=== PATIENT | female | born 1980 | race African-American/Black ===

== ENCOUNTER 2016-08-14 01:46 | Inpatient (IN) | payer OTHER ==
[~2016-08-14] VITALS: Ht 167.6 cm; Wt 80.7 kg
[~2016-08-14 01:46] MED LIST: ACET325T51 PO; METO-301 PO; PNV91TAB3 PO
[2016-08-14] MEDS ORDERED: Penicillin G K Inj 5,000,000 UNITS in Dextrose 5% Minibag Plus 100 ML IV ONE (09:05)
--- NOTE | 2016-08-14 09:24 | PCM.HPOB ---
Subjective Referring Provider: Admitting Physician: Raúl Carnes MD Primary Care Physician: Nael Orr MD Attending Physician: Raúl Carnes MD Chief Complaint Induction of Labor History of Present History of Present Illness The patient is a 35-year-old, 4, para 3, at 41 weeks today, who is coming to Labor and Delivery for elective induction of labor. The patient has a history of three spontaneous vaginal deliveries in the past, all of them at term. She has a history of elective induction of labor at 39 weeks, which was unsuccessful. She is considering tubal ligation. OB History: (4), Para (3) Past Medical History Obstetrical History: all . Gynecologic History: Female circumcision age 7 Medical History: None stated Surgical History: Non Stated Hx Tobacco Use: No Hx Alcohol Use: No Hx Substance Use: No Past Family History Living Arrangement: with Family Genetic Screening/Counseling Genetic Screening/Counseling: Positive Review of Systems Constitutional: Y: Pain, Dizziness, Fever Eyes: Denies: Vision Changes Cardiovascular: Denies: Chest Pain Respiratory: Denies: Cough Gastrointestinal: Reports: Abdominal Pain, Denies: Nausea, Vomiting Neurological: Denies: Confusion, Dizziness, Weakness Hematologic: Denies: Abnormal bleeding Allergy Coded Allergies: No Known Allergies (Unverified , 08/18/16) Exam Vital Signs BP 112/78 HR 82 RR 18 O2 98% Temp 36.9 Exam HR 135, moderate variability 6-25bpm. Accelerations - 15x15, decelerations - variable Constitutional: Well-developed, Well-nourished HEENT: Atraumatic, PERRLA, EOMI Lungs: Clear to Auscultation, Normal Air Movement Heart: Exam Unremarkable, Regular Rate/Rhythm, Normal S1, Normal S2 Abdomen: Gravid Neurological/Psychiatric: Alert, Oriented X3, Cooperative Neuro: Grossly Neurologically Intact Labs/Diagnostics Maternal Blood Type: A Group B Strep Results: Positive Rubella: Immune Lab History: Negative for: Hx Chicken Pox, Hx Gonorrhea, Hx HIV, Hx Herpes, Hx Syphilis OB Intrapartum Assessment/Plan Assessment 35 year old female, second attempt at induction. Post induction baby has had some early decelerations with two episodes of deep decelerations. Overall good variability. Pt given Diflucan for a yeast infection present on admission, PCN bolus given followed by drip. Pain Evaluation: Adequate Pain Control Attending Statement Coming in for induction for post date. Will consider cervical ripening at this moment VONNIE SANCHEZ DO Aug 14, 2016 09:24 Olivia Hopkins MD Sep 08, 2016 13:04
[2016-08-14] MEDS ORDERED: Oxytocin 30 Units/500 mL LR 30 UNITS in IV Premix 1 EACH IV PRN (09:30)
[2016-08-14] MEDS ORDERED: Hemorrhage Kit, Post Partum XX ONE (09:30)
[2016-08-14] MEDS ORDERED: Methylergonovine 0.2 mg/mL Inj IM PRN (09:30)
[2016-08-14] MEDS ORDERED: Sodium Chloride LOK Flush 10 mL Syringe IVFLUSH PRN (09:30)
[2016-08-14] MEDS ORDERED: Oxytocin 10 Unit/mL Inj IM PRN (09:30)
[2016-08-14] MEDS ORDERED: Carboprost 250 mCg/mL Inj IM PRN (09:30)
[2016-08-14] MEDS: Lactated Ringer's 1,000 ML IV SCH ×2 (09:36→18:00)
[2016-08-14] MEDS: Misoprostol 25 mCg/0.25 Tablet VAGINAL SCH ×3 (09:36→17:00)
[2016-08-14 09:42] LABS: Mean Corpuscular Hemoglobin 25.6 pg (27.0-35.0); Mean Corpuscular Volume 75.8 fL (81-100)
[2016-08-14] MEDS ORDERED: Bupivacaine-MPF 0.25% 30 mL Inj ONE (12:59)
[2016-08-14] MEDS: Penicillin G K Inj 3,000,000 UNITS in IV Premix 1 EACH IV SCH ×3 (14:04→21:55)
[2016-08-14] MEDS ORDERED: Lactated Ringer's 500 ML IV ONE (20:01)
[2016-08-14] MEDS ORDERED: Lactated Ringer's 1,000 ML IV SCH (20:01)
[2016-08-14] MEDS ORDERED: Atropine 1 mg/10 mL (Code) Syringe IVPUSH PRN (20:05)
[2016-08-14] MEDS ORDERED: EPHEDrine Sulfate 50 mg/mL Inj IVPUSH PRN (20:05)
[2016-08-14] MEDS ORDERED: fentaNYL 2 mCg/mL-Bupiv 0.125% 100 ML EPIDURAL SCH (20:05)
[2016-08-14] MEDS ORDERED: Ondansetron 2 mg/mL 2 mL Inj IVPUSH PRN (20:05)
--- NOTE | 2016-08-14 23:28 | PCM.HPANE ---
Patient Data Surgeon Admitting Provider:Raúl Carnes MD Attending Provider:Raúl Carnes MD Primary Care Physician:Nael Orr MD Other Provider:Hemant Hernandez Anesthesia Reason for Visit Induction INDUCTION Ht/WT & BMI Body Mass Index Allergies Coded Allergies: No Known Allergies (Unverified , 01/16/16) Diabetes History Hx Diabetes?: No MRSA MRSA: No Medications Hypertension Medication: No Home Meds Incl Beta Flory: No Active Scripts Metoclopramide (Reglan)10 Mg [id number] Mg PO QID PRN For Headache #10 TABLET Ref 0 Prov:Jeremy Pathak DO 01/16/16 Reported Medications Acetaminophen 325 Mg [id number] Mg PO Q4H PRN For Fever Ref 0 01/16/16 Pnv95/Ferrous Fumarate/FA ( Caplet)28 Mg Iron-800 Mcg Tablet1 Each PO 01/16/16 History History of ENT Problems?: No Hx of Heart Problems?: No Cardiovascular History: Denies:: Congestive Heart Failure Hypertension Hx of Respiratory Problem?: No Respiratory History: Denies:: Tuberculosis Hx Neurologic Problems?: No Hx of GI Problems?: No Hx of Problems?: No HX of Peritoneal Dialysis: No Female Hx: Positive for:: Currently Hx Musculoskeletal Problems?: No Hx of Psycho/Social Problems?: No Hx Surgeries?: No Hx Diabetes: No Hx Alcohol Use: NoHx Substance Use: No Smoking Status: Never Smoker Stop/Bang NICHOLAS Risk Assessment: Low Risk, <3 Yes Risk Assessment Category Category 1A: Patient has history of documented sleep apnea, and HAS NOT received any narcotic, sedative or anesthesia administration during this stay. Category 1B: Patient has history of documented sleep apnea, and HAS received any narcotic , sedative or anesthesia administration during this stay Category 2: Patient has SUSPECTED Obstructive Sleep Apnea, and HAS received any narcotic , sedative or anesthesia administration during this stay. Category 3: Patient has SUSPECTED Obstructive Sleep Apnea and HAS NOT received narcotic, sedative or anesthesia administration during this stay. Category 4: Outpatient in Procedural Areas with known sleep apnea or who screen positive for High Risk via the STOP/BANG questionnaire. Exam Exam General Appearance: Alert, Oriented X3, Cooperative, No Acute Distress HEENT/AIRWAY: MP 2 Lungs: Clear to Auscultation, Normal Air Movement Heart: Exam Unremarkable, Regular Rate/Rhythm, No Murmurs/Rubs/Gallops Meds/Labs/Diagnostics Admission Meds Current Medications Lactated Ringer's (Lr) 1,000 ml @ 125 mls/hr Q8H IV Last administered on 18:00; Start 08/14/16 at 08:57 Misoprostol (Cytotec) 25 mcg Q4H VAGINAL Last administered on 08/14/16 09:36; Start 08/14/16 at 09:00 Fluconazole (Diflucan) 150 mg DAILY PO Last administered on 08/14/16 09:36; Start 08/14/16 at 09:05 Acetaminophen 650 mg 650 mg ONCE ONCE PO Last administered on 08/14/16 09:36 ; Start 08/14/16 at 09:05; Stop 08/14/16 at 09:08; Status DC Penicillin G Potassium [id number] units/Dextrose/ Water 100 ml @ 240 mls/hr ONCE ONCE IV Last administered on 08/14/16 09:35; Start 08/14/16 at 09:05; Stop 06/20 at 09:29; Status DC Penicillin G Potassium/ Dextrose/Premix (Pfizerpen Inj/ IV Premix) 50 ml @ 100 mls/hr Q4H IV Last administered on 08/14/16 17:59; Start 08/14/16 at 13:49 Labs Test 08/14/16 08:45 White Blood Count 7.0th/mm3 (3.8-10.1) Red Blood Count 4.29mil/mm3 (3.90-5.20) Hemoglobin 11.0g/dL (12.0-15.6) Hematocrit 32.5% (35.0-46.0) Mean Corpuscular Volume 75.8fL (81-100) Mean Corpuscular Hemoglobin 25.6pg (27.0-35.0) Mean Corpuscular Hemoglobin Concent 33.8% (32.0-37.0) Red Cell Distribution Width 13.7% (12.3-15.4) Platelet Count 245bil/L (150-400) Plan Impression Patient chart reviewed, patient interviewed and anesthestic plan with risks, benefits, and alternatives discussed, and informed consent obtained. ASA Physical Status: ASA2 Mod Systemic Disease Anesthetic Plan: Epidural Bene/Risks/Altern/Consents: Yes HP Complete Prior to Induction: Yes Dick Castro MD Aug 14, 2016 20:04
[2016-08-15] MEDS: Penicillin G K Inj 3,000,000 UNITS in IV Premix 1 EACH IV SCH (02:30)
[2016-08-15] MEDS ORDERED: Lactated Ringer's 1,000 ML IV SCH (04:23)
[2016-08-15] MEDS ORDERED: Witch Hazel-Glycerin Pads TOPICAL PRN (04:25)
[2016-08-15] MEDS ORDERED: Methylergonovine 0.2 mg/mL Inj IM PRN (04:25)
[2016-08-15] MEDS ORDERED: Hemorrhage Kit, Post Partum XX ONE (04:25)
[2016-08-15] MEDS ORDERED: LANOlin HPA 7 Gm Ointment TOPICAL PRN (04:25)
[2016-08-15] MEDS ORDERED: Carboprost 250 mCg/mL Inj IM PRN (04:25)
[2016-08-15] MEDS ORDERED: Oxytocin 30 Units/500 mL LR 30 UNITS in IV Premix 1 EACH IV PRN (04:25)
[2016-08-15] MEDS ORDERED: Oxytocin 10 Unit/mL Inj IM PRN (04:25)
--- NOTE | 2016-08-15 06:57 | OP ---
[address] [address] OPERATIVE REPORT PATIENT: AWAIS LOUIE : 1980 MR#: [id number] ADMIT: 08/14/2016 JOB ID: [id number] DATE OF SURGERY: 08/15/2016 SURGEON: Olivia Hopkins MD PREOPERATIVE DIAGNOSIS(ES): POSTOPERATIVE DIAGNOSIS(ES): DELIVERY NOTE: This is a 35-year-old female, 4, para 4 now. She is at 41 weeks gestation. She was admitted for induction of labor for post dates with unfavorable cervix. She was started with cervical ripening and with Cytotec and Casper balloon. After the Casper balloon was removed 6 hours after placement, she was noted to be 4 cm dilated and Pitocin was started, and she got Pitocin for controlling of labor pain. Then she had labor progressed after that well. Plan was to start her on Pitocin induction. She progressed actually spontaneously to full dilation. She had a good effort to push after she was fully dilated. When I presented to the room she had been pushing for 1 hour and 20 minutes with station at +1. The position was NAIDA. During her pushing, felt like her effort was decreasing and her contraction at this time was irregular. Decision was made to start her on Pitocin augmentation. With very low dose of Pitocin, her contractions became stronger and she has a better effort to push. During the push there were variable decelerations after each contraction. It goes down to as deep as 70 bpm, but it lasts about 20-30 seconds and recovers quickly. The patient was placed with position change and oxygen. The patient delivered the at NAIDA position and the shoulder and chest delivered without difficulty. The infant cried spontaneously after delivery immediately. The was placed on mother's chest. Cord clamped and cut after the pulsation disappeared. Cord blood collected and then the placenta delivered spontaneously completely and examined with three-vessel cord. After the placenta delivered, the uterus was well contracted. The perineum examined and noticed there was a small periurethral laceration with no active bleeding. There was no other laceration on the perineum. Two simple stitches were placed to close the small tear at her left perirectal area. Hemostasis confirmed. The patient has low tolerance and but she is tolerating the delivery well with instruction. All the instruments, needles, laps and gauzes counted correct twice. The EBL during the delivery was about 150 cc. The score of the was 9 and 9. The weight was not available at dictation. [facility]
--- NOTE | 2016-08-15 07:03 | PCM.PNOBPP ---
Subjective Date of Service Aug 15, 2016 Post : Spontaneous Vaginal Delivery Subjective 35 year old at 41 weeks induced labor (second attempt). Pt began induction process on 08/14/16 receiving cervical ripening with Cytotec and Casper balloon followed by pitocin. Pt delivered on 08/15/16 at ~ 0400 without complication. Pt suffered a small periurethral laceration with no active bleeding. 2 simple stitches placed. at time of interview Pt had not voided urine , but was able to ambulate to restroom. Pt had not yet had a BM or passed flatus. Complains of mild lower abdominal/vaginal pain. Denies CP, N/V, MERRITT. Lochia: Normal Pain Management: PO pain meds, Good Pain Control Gastrointestinal: Passing Flatus Postop Activity: Ambulating in Room Only Group B Strep Results: Positive Rubella: Immune Blood Type: A Labs Laboratory Tests 08/14/16 08:45: White Blood Count 7.0, Red Blood Count 4.29, Hemoglobin 11.0, Hematocrit 32.5, Mean Corpuscular Volume 75.8, Mean Corpuscular Hemoglobin 25.6, Mean Corpuscular Hemoglobin Concent 33.8, Red Cell Distribution Width 13.7, Platelet Count 245 Exam Vital Signs Vital Signs: VS reviewed, stable Exam Abdomen: Abdomen soft, Abdomen appropriately tender : Voiding concerns (Has not voided yet) Lungs: Clear to Auscultation Heart: Exam Unremarkable, Regular Rate/Rhythm General: Alert, Oriented X3, Cooperative OB Post Assessment/Plan Assessment 35 year old , at 0400 after induction yesterday morning without complication. Mother doing well. Problems: (1) Vaginal delivery Plan: Pain managment PRN, encourage ambulation, stool softener. Status: Acute ICD Code: O80 Pain Evaluation: Adequate Pain Control Attending Statement I saw patient and agree with above plan VONNIE SANCHEZ DO Aug 15, 2016 07:03 Olivia Hopkins MD Sep 08, 2016 12:59
[2016-08-15] MEDS: HYDROcodone-APAP 5-325 mg Tablet PO PRN ×4 (09:11→23:33)
[2016-08-16 06:41] LABS: Mean Corpuscular Hemoglobin 25.4 pg (27.0-35.0); Mean Corpuscular Volume 76.7 fL (81-100)
--- NOTE | 2016-08-16 07:18 | PCM.PNOBPP ---
Subjective Date of Service Aug 16, 2016 Post : Spontaneous Vaginal Delivery Subjective 35 year old s/p on 06/15/17 at 0400 after labor induction with no complications. Pt is Mother and baby doing well. Mother plans to breast feed, is walking around room, able to urinate and pass flatus - reports no BM. Lochia: Normal Pain Management: PO pain meds, Good Pain Control Gastrointestinal: Passing Flatus Postop Activity: Ambulating in Room Only Group B Strep Results: Positive Rubella: Immune Blood Type: A RH Type: Positive Labs Laboratory Tests 08/14/16 08:45: White Blood Count 7.0, Red Blood Count 4.29, Hemoglobin 11.0, Hematocrit 32.5, Mean Corpuscular Volume 75.8, Mean Corpuscular Hemoglobin 25.6, Mean Corpuscular Hemoglobin Concent 33.8, Red Cell Distribution Width 13.7, Platelet Count 245 Exam Exam Abdomen: Abdomen soft, Abdomen appropriately tender : Voiding without difficulty Extremities: Normal pulses Lungs: Normal Air Movement Heart: Regular Rate/Rhythm General: Alert, Oriented X3, Cooperative OB Post Assessment/Plan Problems: (1) Vaginal delivery Plan: Pain management PRN, encourage ambulation, stool softener. Discharge to home today. Status: Acute ICD Code: O80 Pain Evaluation: Adequate Pain Control Attending Statement The patient was seen and examined together with Dr. Velasco on 08/16/2016 and I agree with the history, exam and plan as outlined in the note above. / MD DANIEL Smith GILES A DO Aug 16, 2016 06:27 Raúl Carnes MD Sep 25, 2016 16:15
--- NOTE | 2016-08-16 07:33 | PCM.DC.OB ---
Obstetrical Discharge Summary Date of Service Aug 16, 2016 Date of hospital admission Aug 14, 2016 at 07:30 Date of Discharge: Aug 16, 2016 Providers Admitting Physician: Raúl Carnes MD Primary Care Physician: Nael Orr MD Attending Physician: Raúl Carnes MD Problems: (1) Vaginal delivery Plan: Discharge to home, Rx for Colace IBU and pelvic rest. Will have 6 week follow up at which time she will have an IUD placement at that time. She is planning on breast feeding. Status: Acute ICD Code: O80 Brief History and Physical: The patient is a 35-year-old, 4, para 3, at 41 weeks today, who is coming to Labor and Delivery for elective induction of labor. The patient has a history of three spontaneous vaginal deliveries in the past, all of them at term. She has attempted to induce labor during this at 39 weeks, which was unsuccessful. She is considering tubal ligation. Hospital Course: Labor induced on the morning of 06/14/17. Pt gave to a healthy boy on 07/20 at 0400 with no complications. Pt GBS positive and given appropriate ABX coverage. Pt also had a reported yeast infection, Diflucan started in hospital. Pt recovered well over 24 hour period with no adverse events. Discharged to home in stable condition. Acetaminophen (Acetaminophen) 325 Mg Tablet 325 MG PO Q4H PRN PRN For Fever ( Reported) Ascorbic Acid (Vitamin C) 250 Mg Tab.chew 125 MG PO DAILY Prescribed by: VONNIE VELASCO DO Docusate Sodium (Colace) 100 Mg Capsule 100 MG PO BID PRN PRN For Constipation Prescribed by: VONNIE VELASCO DO Ferrous Sulfate (Ferrous Sulfate) 325 Mg Tablet 325 MG PO DAILY Prescribed by: VONNIE VELASCO DO Fluconazole (Diflucan) 100 Mg Tab 150 MG PO DAILY Prescribed by: VONNIE VELASCO DO Ibuprofen (Ibuprofen) 600 Mg Tablet 600 MG PO Q6H PRN PRN For Mild Pain Prescribed by: VONNIE VELASCO DO Metoclopramide (Reglan) 10 Mg Tablet 10 MG PO QID PRN PRN For Headache Prescribed by: MECCA MOREIRA DO Pnv95/Ferrous Fumarate/FA ( Caplet) 28 Mg Iron-800 Mcg Tablet 1 EACH PO (Reported) Discharge Medications: Colace, Ibuprofen, Iron, Vit C Disposition Discharge to home Follow-up plan Follow up in the women's clinic in 6 weeks. Discharge Diet: No restrictions Discharge Activity-General: Pelvic Rest for 6 weeks, Pelvic Rest (6 weeks), Try not to overdue, Balance rest and activity, Activity as pain allows, Activity as energy allows Patient instructions Be sure to follow up in 6 weeks at women's [facility]. Please remember to call ahead to also schedule an IUD placement as you stated that will be your preferred method of contraception. Pelvic rest for 6 weeks (nothing in the vagina including intercourse, tampons) If you have a fever greater than 100.4 please call [facility]. If you have a lot of bleeding suddenly, especially if you have symptoms of dizziness & weakness with it, get emergency help. If you start experiencing extreme depression, especially if you feel that you are a danger to yourself or your family, seek emergency help. Please continue to take you iron and vitamin C supplement. You may take Tylenol and Ibuprofen for pain. Please alternate between these two medications and do not exceed the maximum doses in a 24 hour period. Do not take more than 3,000 mg in one day of acetaminophen (Tylenol) or 3200mg of ibuprofen in a 24 hour period. Please take your docusate, if you still do not have a bowel movement in the next few days please follow up in the women's clinic or with your PCP. I have given you a prescription for two more Diflucan pills, you may take these if you have a recurrence of your yeast infection. Please follow up in the women' s clinic for continued management. You have been through a lot -- Be sure to take care of yourself. Attending Statement: The patient was seen and examined together with Dr. Velasco on 08/16/2016 and I agree with the history, exam and plan as outlined in the note above. / MD DANIEL Smith GILES A DO Aug 16, 2016 07:32 Raúl Carnes MD Sep 25, 2016 16:16
--- NOTE | 2016-08-16 07:46 | PCM.DIOB ---
Obstetrical Disch Instruction Dates of Hospitalization Date of Hospital Admission Aug 14, 2016 at 07:30 Providers Admitting Physician: Raúl Carnes MD Primary Care Physician: Nael Orr MD Attending Physician: Raúl Carnes MD Discharge Diagnosis Problems: (1) Vaginal delivery Plan: Pelvic rest x 6 weeks, Ibuprofen for pain. Colace for constipation. Will continue to take Iron and Vit C secondary to anemia. Follow up in [facility] in 6 weeks. Status: Acute ICD Code: O80 Diet Discharge Diet: No restrictions Activity Discharge Activity-General: Pelvic Rest for 6 weeks, Try not to overdue, Balance rest and activity, Activity as pain allows, Activity as energy allows, No lifting >15 pounds for 2 weeks Dressing and Incisional Care Hygiene: May shower, NO bathtub, hot tub or whirlpool, Witch Arabella pads, Ice Additional Instructions Discharge Instructions Be sure to follow up in 6 weeks at [facility]. Please remember to call ahead to also schedule an IUD placement as you stated that will be your preferred method of contraception. Pelvic rest for 6 weeks (nothing in the vagina including intercourse, tampons) If you have a fever greater than 100.4 please call [facility]. If you have a lot of bleeding suddenly, especially if you have symptoms of dizziness & weakness with it, get emergency help. If you start experiencing extreme depression, especially if you feel that you are a danger to yourself or your family, seek emergency help. Please continue to take you iron and vitamin C supplement as prescribed You may take Tylenol and Ibuprofen for pain. Please alternate between these two medications and do not exceed the maximum doses in a 24 hour period. Do not take more than 3,000 mg in one day of acetaminophen (Tylenol) or 3200mg of ibuprofen in a 24 hour period. Please take your docusate, if you still do not have a bowel movement in the next few days please follow up in the women's clinic or with your PCP. I have given you a prescription for two more Diflucan pills, you may take these if you have a recurrence of your yeast infection. Please follow up in the women' s clinic for continued management. You have been through a lot -- Be sure to take care of yourself. Follow Up Plan Follow Up Plan Follow up in 6 weeks at [facility] Follow-up appointment: Weeks (6) Call your provider for: Fever or Chills, Shortness of breath, Heavy vaginal bleeding, Heavy bleeding, Epigastric pain, Excessive constipation, Vaginal discomfort, Red painful breasts VONNIE SANCHEZ DO Aug 16, 2016 07:46
[2016-08-16] MEDS ORDERED: DOCU-41 PO (07:53)
[2016-08-16] MEDS ORDERED: IBUP-1827 PO (07:53)
[2016-08-16] MEDS ORDERED: ASCO250T7 PO ×3 (07:56→08:19)
[2016-08-16] MEDS ORDERED: FERR-83 PO (08:06)
[2016-08-16 08:59] VITALS: BP 100/61; PULSE 66
[2016-08-16] MEDS ORDERED: DIF100A PO (09:47)
== END 2016-08-16 13:00 | disposition home or self-care (01) | DRG 775 ==
LOC: FBC 07:30
PROVIDERS: ADMIT Obstetrics & Gynecology; ATTEND Obstetrics & Gynecology
PROC: 10E0XZZ Delivery of Products of Conception, External Approach (ICD-10-PCS; principal; 2016-08-15)
PROC: 0TQD7ZZ Repair Urethra, Via Natural or Artificial Opening (ICD-10-PCS; 2016-08-15)
DX: O71.5 Other obstetric injury to pelvic organs (principal); O99.824 Streptococcus B carrier state complicating childbirth; B37.3 Candidiasis of vulva and vagina; Z3A.41 41 weeks gestation of pregnancy

== ENCOUNTER 2016-08-18 13:03 | Emergency (ER) | payer OTHER ==
[~2016-08-18] VITALS: Ht 167.6 cm; Wt 70.5 kg
[~2016-08-18 13:03] MED LIST changes: +ASCO250T7 PO; +DIF100A PO; +DOCU-41 PO; +FERR-83 PO; +IBUP-1827 PO
[2016-08-18 13:05] VITALS: BP 128/82; PULSE 78; RESP 18; O2SAT 99
--- NOTE | 2016-08-18 13:21 | ED.REPORT ---
HPI-Headache Date of Service Aug 18, 2016 ED Provider: Dr. Olsen Pt is a 35 y/o female presenting to the ED with her c/o severe headache with radiation to the posterior neck onset 2 days ago. She has a very distant history migraines but has never experienced a headache similar to this before. This is not similar to a migraine. Her headache began after being discharged from a labor and delivery admission at which point she received an epidural. Of note, there were complications during the administration of the epidural. She c/ o associated mild LLE numbness and tingling from the buttock to the foot, photophobia, phonophobia. She denies nausea, vomiting, fever, chills, focal weakness, speech change, vision change. This was her 4th delivery. She has used Tylenol and Ibuprofen along with hot/cold packs without relief. They called the charge nurse at the OB floor and was told to coem to the ED. OB: Dr. Tan Nursing Notes Stated Complaint: HEADACHE Chief Complaint: Headache Nursing Notes Reviewed: Yes Allergies: Coded Allergies: No Known Allergies (Unverified , 08/18/16) Scheduled Ascorbic Acid (Vitamin C) 250 Mg Tab.chew 125 MG PO DAILY Ferrous Sulfate (Ferrous Sulfate) 325 Mg Tablet 325 MG PO DAILY Fluconazole (Diflucan) 100 Mg Tab 150 MG PO DAILY Scheduled PRN Acetaminophen (Acetaminophen) 325 Mg Tablet 325 MG PO Q4H PRN PRN For Fever Docusate Sodium (Colace) 100 Mg Capsule 100 MG PO BID PRN PRN For Constipation Ibuprofen (Ibuprofen) 600 Mg Tablet 600 MG PO Q6H PRN PRN For Mild Pain Metoclopramide (Reglan) 10 Mg Tablet 10 MG PO QID PRN PRN For Headache Miscellaneous Medications Pnv95/Ferrous Fumarate/FA ( Caplet) 28 Mg Iron-800 Mcg Tablet 1 EACH PO General Time Seen by MD: 13:21 Chief Complaint Headache, Worst headache of life Hx Obtained From: Patient, Spouse Arrived By: Walk-in Sudden in Onset?: No Onset Occurred: 2 days ago Symptom Duration: Since onset Location: : Generalized Quality: Painful Radiation: : Neck, posterior Severity: Current: Moderate Severity: Maximum: Severe Exacerbated by: Light, Sound Recent Healthcare: Recent hospitalization Similar Sx Previous: No Past Medical History Past Medical History Migraines Past Surgical History Denies Family History noncontributory Smoking History Never Smoker Social History Alcohol Use: Denies alcohol use Drug Use: Denies drug use Other Social History: Good social support, Lives with children, Local resident Ambulatory Status Independent Review of Systems Review of Systems Note: + phonophobia Constitutional: Denies: Chills, Fever Eyes: Reports: Photophobia GI: Denies: Abdominal pain, Diarrhea, Nausea, Vomiting Neurologic: Reports: Headache, Numbness, Denies: Abnormal movement, Bladder dysfunction, Bowel dysfunction, Change LOC , Confusion, Dizziness, Focal weakness, Lightheaded, Problem walking, Seizure, Shaking, Slurred speech, Spinning sensation, Syncope, Unable to speak, Vision change Complete sys rev & neg: except as marked. Cardiovascular: Denies: Chest pain Physical Exam Initial Vital Signs Initial VS: Reviewed, Vital signs normal ENT: Mucous membranes moist, Conjunctiva normal, No scleral icterus Respiratory: Breath sounds normal, Clear to auscultation, No respiratory distress Cardiovascular: Regular rate & rhythm, Heart sounds normal, Intact distal pulses Abdomen / GI: Soft, Non-tender, No guarding, No rebound, No distention Extremities: Vascular intact, Neuro intact, No swelling, No tenderness Skin: Warm, Dry, No cyanosis Psychiatric: Mood/affect normal, Behavior normal, Normal thought content General/Constitutional: Awake, Alert, No acute distress, Cooperative, Not toxic appearing Appearance / Presentation: Positive: Uncomfortable Head / Eyes: Atraumatic, Normocephalic, PERRL, EOMI, No nystagmus Photophobia Phonophobia Neck: Atraumatic, Supple, No meningismus, Full range of motion Neurologic: Oriented X3, Speech NL, No motor deficits, No sensory deficits, CN II - XII intact, Cerebellar NL, Memory NL Interpretation & Diagnostics Lab Results Interpretation Test 08/18/16 13:00 08/18/16 14:04 White Blood Count 7.8th/mm3 (3.8-10.1) Red Blood Count 4.69mil/mm3 (3.90-5.20) Hemoglobin 11.8g/dL (12.0-15.6) Hematocrit 35.8% (35.0-46.0) Mean Corpuscular Volume 76.3fL (81-100) Mean Corpuscular Hemoglobin 25.2pg (27.0-35.0) Mean Corpuscular Hemoglobin Concent 33.0% (32.0-37.0) Red Cell Distribution Width 14.1% (12.3-15.4) Platelet Count 302bil/L (150-400) Neutrophils (%) (Auto) 78.8% (40-74) Lymphocytes (%) (Auto) 12.8% (14-46) Monocytes (%) (Auto) 5.5% (4-12) Eosinophils (%) (Auto) 1.7% (0-5) Basophils (%) (Auto) 0.3% (0-3) Sodium Level 139mEq/L (134-144) Potassium Level 3.6mEq/L (3.5-5.2) Chloride Level 102mEq/L (97-108) Carbon Dioxide Level 24mmol/L (18-29) Blood Urea Nitrogen 11mg/dL (6-20) Creatinine 0.81mg/dL (0.57-1.00) Estimat Glomerular Filtration Rate 103mL/min (>59) Glucose Level 85mg/dL (60-99) Calcium Level 8.7mg/dL (8.5-10.1) C-Reactive Protein 3.8mg/dL (0.0-0.5) Hold Velasquez Top Tube Received (Received) Pulse Oximetry Interpretation Pulse Oximetry: Pulse Ox normal, On room air CBC Interpretation CBC normal BMP / CMP Interpretation BMP/CMP normal Acute Phase Reactant Interp CRP elevated CT Head Interpretation IMPRESSION: Source of severe headache is not found. Dictated by: Efrain Bennett M.D. on 08/18/2016 at 14:21 Approved by: Efrain Bennett M.D. on 08/18/2016 at 14:21 Study: Head CT no contrast Interpretation / Wet Read by: Interpret - Radiologist Re-Eval/Medical Decision Med Decision/Clinical Course 45-year-old female presenting with severe headache that started 2 days ago after receiving epidural for childbirth. CT brain is negative. She has no focal neurologic deficits. Discussed case with anesthesia who agreed this is a spinal headache and to treat with blood patch. After this procedure was performed patient felt much better. Please see anesthesia note for documentation of this procedure. She will return if her symptoms return/worsen. Source of Hx: Old records, Family Re-Evaluation/Progress #1: Time of Eval: 15:02 Re-Evaluation/Progress Note: Pt rechecked. She is feeling better after the blood patch. She is meant tos audrey on her back for 1 hr and anesthesia will come recheck her. Re-Evaluation/Progress #2: Time of Eval: 15:54 )( Patient Status: Condition resolved, Complete relief, Pain resolved Evaluation: Mental status normal, Neurologic nonfocal Re-Evaluation/Progress Note: Pt rechecked. Informed pt of plan for treatment. Pt understands and agrees with plan for treatment. F/U and RTER warnings given. All questions addressed. Consultation : Referral / Consult Name: Meng Guerrero MD Consulted With: Anesthesia Call Returned at: 14:00 Electric Motorman: Agrees with eval, Agrees with plan Note: Discussed case with OB anesthesia. He will come down and evaluate the patient. Counseled Regarding: Diagnosis, Lab results, Need for follow-up, When/why to return to ED Discharge & Departure Impression: Primary Impression: Spinal headache Disposition: Home Discharge Condition All VS Reviewed: Yes Condition: Stable Patient Instructions: Acute Headache (ED) Additional Instructions: Your emergency room evaluation today was suggestive that you have a spinal headache after your epidural, which is a rare complication of this procedure. You were treated by the anesthesiologist with a blood patch for this and your headache improved. You should continue to take Tylenol and caffeine as needed for your headache. If the headache returns or worsens please return for further evaluation. I hope you continue to feel better. Please follow-up with your regular provider next week. Referrals: Nael Orr MD (PCP) Raúl Carnes MD Attestation Portions of this note were transcribed by Khurram Padilla. I, Dr. Madsen personally performed the history, physical exam and medical decision-making; I reviewed and confirmed the accuracy of the information in the transcribed note. Signed by Beryl Waters, 08/18/16 - 1400 copies to: Raúl Carnes MD; Nael Orr MD, Gary R DO Aug 18, 2016 13:21 KHURRAM PADILLA Aug 18, 2016 13:41 copies to: Raúl Carnes MD; Nael Orr MD, Gary R DO Aug 18, 2016 13:21 KHURRAM PADILLA Aug 18, 2016 13:41
[2016-08-18] MEDS ORDERED: 0.9% Sodium Chloride 1,000 ML IV ONE (13:37)
[2016-08-18] MEDS ORDERED: Ondansetron 2 mg/mL 2 mL Inj IVPUSH ONE (13:40)
[2016-08-18 14:09] LABS: BASOPHILS % (AUTO) 0.3 % (0-3); EOSINOPHILS % (AUTO) 1.7 % (0-5); MONOCYTES % (AUTO) 5.5 % (4-12); Mean Corpuscular Hemoglobin 25.2 pg (27.0-35.0); Mean Corpuscular Volume 76.3 fL (81-100); NEUTROPHILS % (AUTO) 78.8 % (40-74); Platelet Count 302 bil/L (150-400)
--- NOTE | 2016-08-18 14:23 | DRSVH ---
PROCEDURE: CT BRAIN WITHOUT CONTRAST ([id number]) INDICATIONS: worst headache of life after epidural TECHNIQUE: Noncontrast 4.5 mm thick angled axial sections acquired from the foramen magnum to the vertex, with c oronal reformats. COMPARISON: None. FINDINGS: Image quality: Excellent. CSF spaces: Basal cisterns are patent. No extra-axial fluid collections. Ventricles are normal in size and shape. Brain: No midline shift. No intracranial masses or hemorrhage. Rey-white matter interface is norm al. Skull and face: Calvarium and visualized facial bones are intact, without suspicious lesions. Sinuses: Visualized sinuses and mastoids are clear. IMPRESSION: Source of severe headache is not found. Dictated by: Efrain Bennett M.D. on 08/18/2016 at 14:21 Approved by: Efrain Bennett M.D. on 08/18/2016 at 14:21
[2016-08-18 15:36] VITALS: BP 110/63; PULSE 70; RESP 20; O2SAT 99
--- NOTE | 2016-08-18 15:48 | PROCED ---
[address] [address] PROCEDURE NOTE PATIENT: AWAIS LOUIE : 1980 MR#: [id number] ADMIT: 08/18/2016 JOB ID: [id number] DATE OF SERVICE: 08/18/2016 POSTOPERATIVE DIAGNOSIS(ES): PREOPERATIVE DIAGNOSIS(ES): SURGEON: Meng Guerrero MD HISTORY OF PRESENT ILLNESS: The patient is a 35-year-old female status post induction of labor with epidural placement on August 14, 2016. Per her report she had an uneventful epidural placement, although she did have difficulty staying still during the placement. There is no chart from the epidural placement to review to confirm the ease of placement, although she did note that she had a working epidural for her delivery. On the , just prior to discharge from the hospital, she has noticed a headache that started which has been progressive since that time. This headache is very positional in nature. It is 10/10 in severity when sitting up. With some difficulty in vision and head and neck pain. It does not go away completely while in the supine position, but is markedly improved. It has been progressively getting worse over the last two days since she has been discharged and is interfering with her ability to care for her child. She does note some sensitivity to light. Studies in the ER have included labs which showed a platelet count of 302. She had a head CT which per the ER doctor was unremarkable for any acute processes. I discussed with the patient about the potential for a spinal headache, which I think is high likelihood given her history of the headache and its relation to an epidural placed on August 14, 2016. Although I am unable to confirm whether there was or was not obvious dural puncture, I think it is likely that an epidural blood patch may be of benefit to her. I discussed the option of conservative management to include pain relievers, caffeine, and fluid hydration, versus a procedural course of treatment which is an epidural blood patch. I discussed the epidural blood patch in detail, including the risks and benefits, which include specifically a 2nd inadvertent dural puncture which will make the headache continue to persist. The patient understands the risks of this procedure and wishes to proceed with an epidural blood patch at this time. DESCRIPTION OF PROCEDURE: With the assistance of the RN from the emergency department, the patient was placed in the sitting position. ChloraPrep was placed on the lower back and 3 mL of 1% lidocaine was used to anesthetize the skin adjacent to the previous epidural placement, which was visible with a small scab. Using loss resistance technique the epidural space was attempted to be found. Note that the patient had extreme difficulty remaining in position and was moving constantly throughout the procedure. I believed based on placing the epidural blood patch that she would be at high risk for an inadvertent CSF puncture during her original epidural placement given her inability to tolerate this procedure today. There was no obvious CSF during the loss of resistance which occurred at 6 cm to saline, although it did take multiple times and coaching with the patient given her inability to remain still or in a curved back position. At one point I had to stop the procedure and tell the patient that we might have to stop because she was moving so much that I feared that the risk of a 2nd dural puncture was extremely high. Luckily we were able to find a loss of resistance at this time. The RN ChloraPrepped the right AC and using sterile technique withdrew approximately 15 mL of patient. The syringe was handed to me sterilely and I injected it slowly into the epidural space. The patient tolerated approximately 9 mL of blood injection before she became acutely uncomfortable. Ideally I would have placed more blood in the epidural space, but it was clear that the risk of harm outweighed the benefits given the amount of patient discomfort. The patient was then placed in the supine position, in which she will remain for 1 hour. I discussed the etiology of the epidural blood patch and estimated success rates after placement. If the patient does not have resolution of her headache, and the working diagnosis continues to be post dural puncture headache, and she remains a candidate for an epidural blood patch attempt a 2nd time, I would highly recommend that this be done using Interventional Radiology and IV sedation as the patient is unable to adequately remain still to make the procedure safe and minimize the risk of repeated dural puncture. The patient was in stable condition at the time of completion of the procedure. She will remain in the supine position for 1 hour prior to mobilizing. Additionally, the RN will give her approximately 1 L of fluid hydration given that she is dehydrated.
[2016-08-18 16:11] VITALS: BP 110/63; PULSE 70; RESP 20; O2SAT 99
== END 2016-08-18 15:43 | disposition home or self-care (01) ==
LOC: SED 13:03
DX: O74.5 Spinal and epidural anesthesia-induced headache during labor and delivery (principal); O99.89 Other specified diseases and conditions complicating pregnancy, childbirth and the puerperium; R20.2 Paresthesia of skin; H53.149 Visual discomfort, unspecified; Z3A.00 Weeks of gestation of pregnancy not specified; Z86.69 Personal history of other diseases of the nervous system and sense organs
CPT/HCPCS: 62273; 70450; 80048; 85025; 86140; 96361; 96374; 96375; 99285; J2405; J7030